=== PATIENT | female | born 1990 | race Caucasian/White ===

== ENCOUNTER 2018-10-23 23:59 | Emergency (ER) | payer SELFPAY ==
[~2018-10-23] VITALS: Ht 167.6 cm; Wt 65.3 kg
[2018-10-24 00:03] VITALS: BP 138/76; PULSE 99; RESP 19; Ht 167.6 cm; Wt 65.3 kg
== END 2018-10-24 01:34 | disposition left against medical advice (07) ==
LOC: FTE 23:59
DX: Z53.21 Procedure and treatment not carried out due to patient leaving prior to being seen by health care provider (principal)